=== PATIENT | female | born 1945 | race Caucasian/White ===

== ENCOUNTER 2021-08-29 12:27 | Emergency (ER) | payer OTHER ==
[~2021-08-29] VITALS: Ht 162.6 cm; Wt 70.8 kg
[2021-08-29] MEDS ORDERED: VITAMIN B-121000 MC4 (12:53)
[2021-08-29] MEDS ORDERED: CALAN SR120 MG (12:53)
[2021-08-29] MEDS ORDERED: MULTIPLE VITAM1 EAC2 (12:53)
== END 2021-08-29 16:33 | disposition home or self-care (01) ==
LOC: ER 12:27
DX: S00.532A Contusion of oral cavity, initial encounter (principal); S00.33XA Contusion of nose, initial encounter; W18.09XA Striking against other object with subsequent fall, initial encounter; Y93.89 Activity, other specified; Y92.89 Other specified places as the place of occurrence of the external cause; Y99.8 Other external cause status